=== PATIENT | female | born 1950 | race American Indian/Alaskan Native ===

== ENCOUNTER 2018-05-03 05:04 | Inpatient (IN) ==
[2018-04-27 13:49] LABS: Basophils # (Auto) 0 K/mcL (0.0-0.3); Basophils % (Auto) 0.6 % (0.0-2.0); Eosinophils # (Auto) 0.2 K/mcL (0.0-0.7); Eosinophils % (Auto) 4.1 % (0.0-7.0); Granulocytes % (Auto) 65.3 % (38.0-78.0); Lymphocytes # (Auto) 1.1 K/mcL (1.5-4.8); Lymphocytes % (Auto) 20.3 % (15.5-49.0); Mean Cell Volume 83.3 fL (80.0-100.0); Mean Corpuscular HGB Conc 33.6 g/dL (31.0-36.0); Monocytes # (Auto) 0.5 K/mcL (0.1-0.9); Monocytes % (Auto) 9.7 % (1.0-12.0); Platelet Count 183 K/mcL (140-440); RBC 3.88 M/mcL (4.00-5.20); Red Cell Distribution Width 13.9 % (11.5-14.5)
[2018-04-27 14:00] LABS: ALT/SGPT 16 U/l (0-40); Albumin 3.1 gm/dL (3.2-5.2); Albumin/Globulin Ratio 0.9 (1.0-2.3); Alkaline Phosphatase 128 U/L (39-117); Blood Urea Nitrogen 16 mg/dl (8-23)
[2018-04-27 14:35] LABS: Estimated Average Glucose(eAG) 143 mg/dL; Hemoglobin A1C 6.6 % HGB (4.0-6.0)
[~2018-05-03 05:04] MED LIST: 0.9 % SODIUM CHLORIDE 250 ML IV SCH; SCOPOLAMINE 1 PATCH PATCH TOPICAL ONE
[2018-05-03] MEDS ORDERED: cefOXitin 2 GM VIAL IV SCH (06:30)
[2018-05-03] MEDS ORDERED: NEOSTIGMINE 1 MG/ML VIAL IV ONE (07:35)
[2018-05-03] MEDS ORDERED: MIDAZOLAM 5 MG/5 ML VIAL IV ONE (07:35)
[2018-05-03] MEDS ORDERED: PROMETHAZINE 25 MG/ML VIAL IV ONE (07:35)
[2018-05-03] MEDS ORDERED: ROCURONIUM 10 MG/ML ML IV ONE (07:35)
[2018-05-03] MEDS ORDERED: ePHEDrine 50 MG/ML AMPUL IV ONE (07:35)
[2018-05-03] MEDS ORDERED: PROPOFOL 200 MG/20 ML VIAL IV ONE (07:35)
[2018-05-03] MEDS ORDERED: KETAMINE 100 MG/ML ML IV ONE (07:35)
[2018-05-03] MEDS ORDERED: GLYCOPYRROLATE 0.2 MG/ML VIAL IV ONE (07:35)
[2018-05-03] MEDS ORDERED: LIDOCAINE HCL/PF 100 MG/5 ML SYRINGE IV ONE (07:35)
[2018-05-03] MEDS ORDERED: DEXAMETHASONE 10 MG/ML VIAL IV ONE (07:35)
[2018-05-03] MEDS ORDERED: ONDANSETRON 4 MG/2 ML VIAL IV ONE (07:35)
[2018-05-03] MEDS ORDERED: PHENYLEPHRINE 10 MG/ML VIAL IV ONE (07:35)
[2018-05-03] MEDS ORDERED: fentaNYL 100 MCG/2 ML VIAL IV ONE (07:35)
[2018-05-03] MEDS ORDERED: GELATIN SPONGE,ABSORBABLE 1 EACH SPONGE TOPICAL ONE (08:00)
[2018-05-03] MEDS ORDERED: ONDANSETRON 4 MG/2 ML VIAL IV PRN (09:41)
[2018-05-03] MEDS ORDERED: fentaNYL 100 MCG/2 ML VIAL IV PRN (09:41)
[2018-05-03] MEDS ORDERED: METOPROLOL TARTRATE 5 MG/5 ML VIAL IV PRN (09:41)
[2018-05-03] MEDS ORDERED: HYDROmorphone 2 MG/ML VIAL IV PRN (09:41)
[2018-05-03] MEDS ORDERED: IPRATROPIUM/ALBUTEROL 3 ML AMPUL.NEB NEB PRN (09:41)
[2018-05-03] MEDS ORDERED: ACETAMINOPHEN 1,000 MG/100 ML BOTTLE IV ONE (09:41)
[2018-05-03] MEDS ORDERED: NALOXONE HCL 0.4 MG/ML VIAL IV PRN (09:41)
[2018-05-03] MEDS ORDERED: METHOCARBAMOL 1,000 MG/10 ML VIAL IV PRN (09:41)
[2018-05-03] MEDS ORDERED: diphenhydrAMINE 50 MG/ML VIAL IV PRN (09:41)
[2018-05-03] MEDS ORDERED: PROMETHAZINE 25 MG/ML VIAL IV PRN (09:41)
[2018-05-03] MEDS ORDERED: FLUMAZENIL 0.1 MG/ML ML IV PRN (09:41)
[2018-05-03] MEDS ORDERED: ATROPINE SULFATE 0.4 MG/ML VIAL IV PRN (09:41)
[2018-05-03] MEDS ORDERED: ePHEDrine 50 MG/ML AMPUL IV PRN (09:41)
[2018-05-03] MEDS ORDERED: LACTATED RINGERS 1,000 ML IV SCH (09:45)
[2018-05-03] MEDS ORDERED: MAGNESIUM HYDROXIDE 30 ML ORAL.SUSP PO PRN (09:51)
[2018-05-03] MEDS ORDERED: ONDANSETRON 4 MG ODT TABLET SL PRN (09:51)
[2018-05-03] MEDS ORDERED: MAG HYDROX/AL HYDROX/SIMETH 30 ML ORAL.SUSP PO PRN (09:51)
[2018-05-03] MEDS ORDERED: oxyCODONE/APAP 5/325MG TABLET PO PRN (09:51)
--- NOTE | 2018-05-03 10:05 | Brief Operative Note ---
Date of procedure: 05/03/18 Pre-op diagnosis: renal cell ca Post-op diagnosis: same Procedure: right partial nephrectomy Grafts/Implants: No Anesthesia: GETA Findings: see note Complications: none Surgeon: Mello Manley Supervisor Title: Carmen Wright Estimated blood loss (cc): 1,100 Specimens Removed/Pathology: other (kidney) Condition: stable Disposition: ICU
--- NOTE | 2018-05-03 10:26 | Operative Note ---
DATE OF OPERATION: 05/03/2018 PREOPERATIVE DIAGNOSIS: Right renal cancer. POSTOPERATIVE DIAGNOSIS: Right renal cancer. PROCEDURE: Right partial nephrectomy. SURGEON: Mello Manley MD EMERGENCY RESPONSE COORDINATOR: Carmen Wright MD INDICATION: The patient is a 67-year-old lady who had an incidental mass seen on the right kidney. This did enhance consistent with renal cell carcinoma. This is in the right upper pole and she presents now for partial nephrectomy. PROCEDURE IN DETAIL: The patient was identified and consent was signed. She was given general anesthesia, placed in supine position, prepped and draped in standard fashion. A midline incision was made with a 10 blade scalpel and carried down through her fat to the abdominal wall. This was a subcostal incision. We opened up the fascia with electrocautery and then were able to enter the abdominal cavity. The liver was noted to have cirrhosis. We were able to carefully dissect free the transverse colon and right colon and were able to retract this so we could see Gerota's fascia. We were able then to open Gerota's fascia and were able to carefully dissect down to the kidney. There was no obvious mass seen. In reviewing the x-rays, it was felt that this was more intraparenchymal. We did do an intraoperative ultrasound and really never saw anything that was abnormal. The decision was made to proceed with the procedure because a biopsy would not change really anything we did. Therefore, we did a wedge resection of the kidney, making sure we went down to the collecting system. At no time did we enter the collecting system. We used the Cyber laser for the resection. I was pleased with the overall appearance. There was some bleeding, which we controlled and finally we put Gelfoam in and closed the defect of the kidney with a #0 liver needle. I was pleased with the overall appearance. There was very little bleeding at this point. We then turned our attention to the liver bed and we did put some Gelfoam in this area and also some ____. The colon was placed back in its normal position. We did place a JAYY drain. The incision was closed in three layers with a #1 PDS. The fat was reapproximated with chromic and the skin was closed with stacy. Sterile dressings were applied. The patient was awoken and taken to recovery room in stable condition. He tolerated the procedure well. Needle and sponge count were correct. Estimated blood loss was 1100 mL. She did receive 1 unit of packed red blood cells. RZ:kh Job ID: [id number] Doc ID: [id number] Mello Manley MD
[2018-05-03] MEDS ORDERED: BUPIVACAINE W/EPI 0.25% 50 ML VIAL IJ ONE (10:29)
[2018-05-03] MEDS: DEXTROSE 5%-NS 1,000 ML IV SCH ×2 (11:35→20:07)
[2018-05-03] MEDS: INSULIN LISPRO 1 UNIT/0.01 ML UNIT SQ SCH ×3 (11:46→20:18)
[2018-05-03] MEDS: ACETAMINOPHEN 650 MG/65 ML BOTTLE IV SCH ×2 (16:09→22:00)
[2018-05-03] MEDS: 0.9 % SODIUM CHLORIDE 10 ML SYRINGE IV SCH ×2 (16:10→21:23)
[2018-05-03] MEDS: cefOXitin 2 GM VIAL IV SCH ×2 (16:31→22:24)
[2018-05-04] MEDS: DEXTROSE 5%-NS 1,000 ML IV SCH ×4 (04:22→20:46)
[2018-05-04] MEDS: ACETAMINOPHEN 650 MG/65 ML BOTTLE IV SCH ×4 (04:57→23:30)
[2018-05-04] MEDS: 0.9 % SODIUM CHLORIDE 10 ML SYRINGE IV SCH ×4 (05:48→21:42)
[2018-05-04 07:01] LABS: Mean Cell Volume 85.3 fL (80.0-100.0); Mean Corpuscular HGB Conc 33.3 g/dL (31.0-36.0); Platelet Count 172 K/mcL (140-440); RBC 3.64 M/mcL (4.00-5.20); Red Cell Distribution Width 14.4 % (11.5-14.5)
[2018-05-04] MEDS: cefOXitin 2 GM VIAL IV SCH (07:09)
[2018-05-04] MEDS: INSULIN LISPRO 1 UNIT/0.01 ML UNIT SQ SCH ×4 (07:23→21:23)
[2018-05-04 07:27] LABS: Blood Urea Nitrogen 31 mg/dl (8-23)
[2018-05-04] MEDS ORDERED: OMEPRAZOLE 20 MG CAPSULE PO SCH (07:30)
[2018-05-04] MEDS ORDERED: LEVOTHYROXINE 125 MCG TABLET PO SCH (07:30)
--- NOTE | 2018-05-04 07:37 | General Surgery Progress Note ---
Subjective Patient reports: still having pain, tolerating liquids well, no flatus Narrative: Note initiated : 05/04/18 at 7:36 am Service Date, if different from initiated Date: [] Patient: Tonya Jensen 67 y/o F admitted on 05/03/18 for Right Partial Nephrectomy. Chief Complaint: [] POD #1, patient feeling better. 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 Ambulate today. Objective Temp Pulse Resp BP Pulse Ox 97.9 F 83 12 136/77 93 05/04/18 00:00 05/04/18 05:06 05/04/18 04:22 05/04/18 05:01 05/04/18 05:06 - Additional Data Intake & Output - Last 24 hours: Intake & Output 05/02/18 05/03/18 05/04/18 05/05/18 05:59 05:59 05:59 05:59 Intake Total 5245 500 Output Total 2035 Balance 3210 500 Weight 235 lb 8 oz 248 lb 8 oz - Labs 05/04/18 05:25 05/04/18 05:25 Diabetes panel 05/04/18 Range/Units 05:25 Sodium 130 L (133-145) mmol/L Potassium 4.8 (3.3-5.1) mmol/L Chloride 103 (96-108) mmol/L Carbon Dioxide 18 L (22-30) mmol/L BUN 31 H (8-23) mg/dl Creatinine 1.4 H (0.6-1.1) mg/dl Glucose 290 H (70-105) mg/dL Calcium 7.9 L (8.6-10.4) mg/dl Calcium panel 05/04/18 Range/Units 05:25 Calcium 7.9 L (8.6-10.4) mg/dl Pituitary panel 05/04/18 Range/Units 05:25 Sodium 130 L (133-145) mmol/L Potassium 4.8 (3.3-5.1) mmol/L Chloride 103 (96-108) mmol/L Carbon Dioxide 18 L (22-30) mmol/L BUN 31 H (8-23) mg/dl Creatinine 1.4 H (0.6-1.1) mg/dl Glucose 290 H (70-105) mg/dL Calcium 7.9 L (8.6-10.4) mg/dl Adrenal panel 05/04/18 Range/Units 05:25 Sodium 130 L (133-145) mmol/L Potassium 4.8 (3.3-5.1) mmol/L Chloride 103 (96-108) mmol/L Carbon Dioxide 18 L (22-30) mmol/L BUN 31 H (8-23) mg/dl Creatinine 1.4 H (0.6-1.1) mg/dl Glucose 290 H (70-105) mg/dL Calcium 7.9 L (8.6-10.4) mg/dl Assessment and Plan - Time Spent With Patient Total time spent is greater than 50% in coordination of care (as documented) at patient's floor/unit and/or counseling patient:
[2018-05-04] MEDS ORDERED: FERROUS SULFATE 325 MG TABLET PO SCH (08:00)
[2018-05-04] MEDS ORDERED: CARVEDILOL 6.25 MG TABLET PO SCH (08:00)
[2018-05-04] MEDS ORDERED: MAGNESIUM OXIDE 400 MG TABLET PO SCH (09:00)
[2018-05-04] MEDS ORDERED: amLODIPine 5 MG TABLET PO SCH (09:00)
[2018-05-04] MEDS ORDERED: LISINOPRIL 20 MG TABLET PO SCH (09:00)
[2018-05-04] MEDS ORDERED: MAG HYDROX/AL HYDROX/SIMETH 30 ML ORAL.SUSP PO PRN (11:07)
[2018-05-04] MEDS ORDERED: MAGNESIUM HYDROXIDE 30 ML ORAL.SUSP PO PRN (11:07)
[2018-05-04] MEDS: oxyCODONE/APAP 5/325MG TABLET PO PRN ×2 (15:56→21:48)
[2018-05-05] MEDS: 0.9 % SODIUM CHLORIDE 10 ML SYRINGE IV SCH ×3 (04:48→22:19)
[2018-05-05] MEDS: DEXTROSE 5%-NS 1,000 ML IV SCH ×2 (04:58→11:44)
[2018-05-05] MEDS: ACETAMINOPHEN 650 MG/65 ML BOTTLE IV SCH (04:59)
[2018-05-05] MEDS: ONDANSETRON 4 MG ODT TABLET SL PRN ×2 (05:31→20:58)
[2018-05-05 06:55] LABS: Mean Cell Volume 83.2 fL (80.0-100.0); Mean Corpuscular HGB Conc 33.6 g/dL (31.0-36.0); Platelet Count 116 K/mcL (140-440); RBC 3.62 M/mcL (4.00-5.20); Red Cell Distribution Width 13.3 % (11.5-14.5)
[2018-05-05] MEDS: OMEPRAZOLE 20 MG CAPSULE PO SCH (07:55)
[2018-05-05] MEDS: INSULIN LISPRO 1 UNIT/0.01 ML UNIT SQ SCH ×4 (07:55→22:18)
[2018-05-05] MEDS: amLODIPine 5 MG TABLET PO SCH (07:56)
[2018-05-05] MEDS: CARVEDILOL 6.25 MG TABLET PO SCH (07:56)
[2018-05-05] MEDS: FERROUS SULFATE 325 MG TABLET PO SCH (07:56)
[2018-05-05] MEDS: LISINOPRIL 20 MG TABLET PO SCH (07:56)
[2018-05-05] MEDS: LEVOTHYROXINE 125 MCG TABLET PO SCH (07:56)
[2018-05-05] MEDS: oxyCODONE/APAP 5/325MG TABLET PO PRN ×3 (07:56→15:55)
[2018-05-05] MEDS: MAGNESIUM OXIDE 400 MG TABLET PO SCH (08:00)
[2018-05-05 08:09] LABS: BUN/Creatinine Ratio 25.4 (12-20); Blood Urea Nitrogen 33 mg/dl (8-23)
[2018-05-05] MEDS ORDERED: BISACODYL 10 MG SUPP.RECT PR PRN (09:13)
--- NOTE | 2018-05-05 09:17 | General Surgery Progress Note ---
Subjective Patient reports: feels better, pain is less, no flatus Narrative: Note initiated : 05/05/18 at 9:15 am Service Date, if different from initiated Date: [] Patient: Tonya Jensen 67 y/o F admitted on 05/03/18 for Right Partial Nephrectomy. Chief Complaint: [] POD #2 pain in improved. ambulating JAYY removed. alberto removed wound clean and dry will give suppository. advance diet. labs stable Objective Temp Pulse Resp BP Pulse Ox 98.6 F 80 18 144/80 91 05/05/18 08:00 05/05/18 03:00 05/05/18 08:00 05/05/18 08:00 05/05/18 08:00 - Additional Data Intake & Output - Last 24 hours: Intake & Output 05/03/18 05/04/18 05/05/18 05/06/18 05:59 05:59 05:59 05:59 Intake Total 5245 5610 Output Total 2035 1130 425 Balance 3210 4480 -425 Weight 235 lb 8 oz 248 lb 8 oz 257 lb - Labs 05/05/18 05:13 05/05/18 05:13 Diabetes panel 05/05/18 Range/Units 05:13 Sodium 125 L (133-145) mmol/L Potassium 4.8 (3.3-5.1) mmol/L Chloride 96 (96-108) mmol/L Carbon Dioxide 14 L (22-30) mmol/L BUN 33 H (8-23) mg/dl Creatinine 1.3 H (0.6-1.1) mg/dl Glucose 166 H (70-105) mg/dL Calcium 7.6 L (8.6-10.4) mg/dl Calcium panel 05/05/18 Range/Units 05:13 Calcium 7.6 L (8.6-10.4) mg/dl Pituitary panel 05/05/18 Range/Units 05:13 Sodium 125 L (133-145) mmol/L Potassium 4.8 (3.3-5.1) mmol/L Chloride 96 (96-108) mmol/L Carbon Dioxide 14 L (22-30) mmol/L BUN 33 H (8-23) mg/dl Creatinine 1.3 H (0.6-1.1) mg/dl Glucose 166 H (70-105) mg/dL Calcium 7.6 L (8.6-10.4) mg/dl Adrenal panel 05/05/18 Range/Units 05:13 Sodium 125 L (133-145) mmol/L Potassium 4.8 (3.3-5.1) mmol/L Chloride 96 (96-108) mmol/L Carbon Dioxide 14 L (22-30) mmol/L BUN 33 H (8-23) mg/dl Creatinine 1.3 H (0.6-1.1) mg/dl Glucose 166 H (70-105) mg/dL Calcium 7.6 L (8.6-10.4) mg/dl Assessment and Plan - Time Spent With Patient Total time spent is greater than 50% in coordination of care (as documented) at patient's floor/unit and/or counseling patient:
[2018-05-05] MEDS: HYDROcodone/APAP 10/325MG TABLET PO PRN (22:18)
[2018-05-06] MEDS: HYDROcodone/APAP 10/325MG TABLET PO PRN ×2 (00:34→07:19)
[2018-05-06] MEDS: 0.9 % SODIUM CHLORIDE 10 ML SYRINGE IV SCH ×2 (03:54→06:17)
[2018-05-06] MEDS: INSULIN LISPRO 1 UNIT/0.01 ML UNIT SQ SCH (07:02)
[2018-05-06] MEDS: OMEPRAZOLE 20 MG CAPSULE PO SCH (07:19)
[2018-05-06] MEDS: MAGNESIUM OXIDE 400 MG TABLET PO SCH (07:19)
[2018-05-06] MEDS: amLODIPine 5 MG TABLET PO SCH (07:19)
[2018-05-06] MEDS: FERROUS SULFATE 325 MG TABLET PO SCH (07:19)
[2018-05-06] MEDS: CARVEDILOL 6.25 MG TABLET PO SCH (07:19)
[2018-05-06] MEDS: LEVOTHYROXINE 125 MCG TABLET PO SCH (07:19)
[2018-05-06] MEDS: LISINOPRIL 20 MG TABLET PO SCH (07:19)
--- NOTE | 2018-05-06 09:51 | Discharge Plan ---
Discharge Plan - Patient/Caregiver Discharge Instructions Activity: increase activity as tolerated Diet: Regular Diet Additional Instructions: no heavy lifting avoid constipation Prescriptions: HYDROcodone/APAP 10/325MG [[place] 10-325Mg] 1 tab PO Q4-6HP PRN #40 tab PRN Reason: Pain Level 3-6 - Follow up Plan Follow up with: Mello Manley MD [Physician] - 05/16/18 11:00 am Disposition: Home, Self-Care Prognosis: Good Rehab Potential: Good Overall status at discharge: patient is back to baseline
--- NOTE | 2018-05-06 09:52 | General Surgery Progress Note ---
Subjective Patient reports: feels better, pain is less, flatus Narrative: Note initiated : 05/06/18 at 9:51 am Service Date, if different from initiated Date: [] Patient: Tonya Jensen 67 y/o F admitted on 05/03/18 for Right Partial Nephrectomy. Chief Complaint: [] pod #3 patient doing well. will dc to home. Objective Temp Pulse Resp BP Pulse Ox 98.4 F 84 20 119/70 97 05/06/18 06:40 05/06/18 03:50 05/06/18 06:40 05/06/18 06:40 05/06/18 06:40 - Additional Data Intake & Output - Last 24 hours: Intake & Output 05/04/18 05/05/18 05/06/18 05/07/18 05:59 05:59 05:59 05:59 Intake Total 5245 5610 2840 Output Total 2035 1130 675 Balance 3210 4480 2165 Weight 248 lb 8 oz 257 lb 265 lb 8 oz - Labs 05/05/18 05:13 05/05/18 05:13 Assessment and Plan - Time Spent With Patient Total time spent is greater than 50% in coordination of care (as documented) at patient's floor/unit and/or counseling patient:
--- NOTE | 2018-05-07 06:57 | Discharge Summary ---
DATE OF ADMISSION: 05/03/2018 DATE OF DISCHARGE: 05/06/2018 PREOPERATIVE DIAGNOSIS: Right renal mass. POSTOPERATIVE DIAGNOSIS: Right renal mass. PROCEDURE: Partial nephrectomy. REQUESTING PHYSICIAN: Mello Manley MD HISTORY OF PRESENT ILLNESS: The patient is a 67-year-old lady who was noted to have a mass on the right kidney. She was taken to surgery where we removed this mass with a partial nephrectomy. For her preoperative physical, please see that dictation. HOSPITAL COURSE: The patient did well. We removed the portion of the kidney and the pathology is still pending. She did receive 2 units of blood around the time of surgery and her hematocrit has been stable. She progressed rapidly. Her pain is controlled with Erwinna 10 mg and she has positive flatus. She is tolerating a regular diet. She is back on her preop meds. PLAN: At this time she is ready to discharge to home. The wound is clean and dry and her JAYY has been removed. We will follow up in 10 days for staple removal. I have gone over this with the patient and she understands and will follow up as outlined. CHAD:carlee Job ID: [id number] Doc ID: [id number] Mello Manley MD
--- NOTE | 2018-05-07 11:13 | Surgical Pathology Report ---
HISTOLOGY SPECIMEN MICROSCOPIC DIAGNOSIS KIDNEY, RIGHT, PARTIAL NEPHRECTOMY: -- RENAL CORTICAL PARENCHYMA WITH NO DIAGNOSTIC ALTERATIONS. -- NO MALIGNANCY IDENTIFIED. (RLF:adj) PROCEDURAL IMPRESSION Right renal cell carcinoma. GROSS DESCRIPTION Received in formalin labeled right partial nephrectomy (kidney), is an 11 gram, 3.1 x 3.1 x 2.4 cm partial nephrectomy specimen. Approximately 40% of the surface of the specimen is pink-salinas, smooth and glistening. The remainder is maroon-brown, friable and possibly cauterized. The smooth surface is over-inked black and the cauterized surface is over-inked blue. The specimen is serially sectioned to reveal essentially unremarkable sal[place]-pink renal cortex with a well-demarcated pyramid. No mass lesion is seen. Entirely submitted in five cassettes. (DMT:pati) Electronically Signed by: Anjelica Wiggins M.D.
== END 2018-05-06 11:28 | disposition home or self-care (01) | DRG 658 ==
LOC: ICU 05:04 → MEDSUR 05-04 10:41